=== PATIENT | female | born 1970 | race Caucasian/White ===

== ENCOUNTER 2018-06-26 07:37 | Emergency (ER) | payer SELFPAY ==
[2018-06-26] MEDS ORDERED: SODIUM CHLORIDE 0.9% 1000ML 1,000 ML IV ONE (08:19)
[2018-06-26 09:17] LABS: ALBUMIN 3.7 gm/dl (3.4-5.0); BILIRUBIN,TOTAL 0.5 mg/dl (0.2-1.0); CALCIUM 8.5 mg/dl (8.5-10.1); CARBON DIOXIDE 25.8 mEq/L (21-32); CREATININE 0.91 mg/dl (0.60-1.00)
[2018-06-26 09:29] LABS: HEMATOCRIT 44 % (35-47); HEMOGLOBIN 13.9 gm/dl (12.0-15.5); MEAN CORPUSCULAR HEMOGLOBIN 29.1 pg (27.0-32.0); MEAN CORPUSCULAR HGB CONC 31.8 gm/dl (32.0-36.0); MEAN CORPUSCULAR VOLUME 91 fL (81-99)
[2018-06-26 09:49] VITALS: BP 115/74; PULSE 84; RESP 18; TEMP 98; O2SAT 100
[2018-06-26 09:56] LABS: BAND NEUTROPHILS % (MANUAL) 5 %; BASOPHILS % (MANUAL) 0 % (0-3); EOSINOPHILS % (MANUAL) 1 % (0-9); LYMPHOCYTES % (MANUAL) 23 % (10-50); MONOCYTES % (MANUAL) 5 % (0-12); NEUTROPHILS % (MANUAL) 66 % (37-80); NORMAL RBCS PRESENT
== END 2018-06-26 10:30 | disposition home or self-care (01) | DRG 392 ==
LOC: ED 07:37
DX: R19.7 Diarrhea, unspecified (principal)
CPT/HCPCS: 36415; 80053; 85007; 85027; 96365; 99283